=== PATIENT | female | born 1995 | race Two or more races ===

== ENCOUNTER 2017-03-30 14:37 | Emergency (ER) | payer MEDICAID ==
[~2017-03-30] VITALS: Ht 167.6 cm; Wt 90.7 kg
[2017-03-30] MEDS ORDERED: SODIUM CHLORIDE 0.9% 1,000 ML IVB ONE (15:41)
[2017-03-30] MEDS ORDERED: PROMETHAZINE HCL 25 MG/ML 1ML IV PRN (15:45)
[2017-03-30] MEDS ORDERED: KETOROLAC TROMETH 30 MG/ML 1ML VIAL IV ONE (15:45)
[2017-03-30 15:55] LABS: Basophils # (auto) 0 uL; Basophils % (auto) 0.4 % (0.0-2.0); CONDITION Y; DEFINITIVE SEE PRINTOUT; Eosinophils # (auto) 0.1 uL; Eosinophils % (auto) 0.6 % (0.0-7.0); Hematocrit 38.4 % (36.0-46.0); Hemoglobin 12.5 g/dL (12.2-16.2); Lymphocytes # (auto) 1.9 uL; Mean Corpuscular Hemoglobin 24.3 pg (28.0-32.0); Mean Corpuscular Hgb Conc. 32.6 g/dL (32.0-36.0); Mean Corpuscular Volume 74.6 fL (80.0-100.0); Mean Platelet Volume 9.1 fL (7.4-10.4); Monocytes # (auto) 0.6 uL; Neutrophils # (auto) 10.2 uL; Platelet Count (auto) 443 10^3/uL (140-450); White Blood Cell 12.9 10^3/uL (4.4-10.8)
[2017-03-30 16:13] LABS: Albumin 3.7 g/dL (3.4-5.0); BUN/Creatinine Ratio 11.1; Calcium 8.8 mg/dL (8.5-10.1); Magnesium 2.1 mg/dL (1.6-2.6); Potassium 3.4 mmol/L (3.5-5.1)
[2017-03-30 16:15] LABS: Bilirubin, Total 0.3 mg/dL (0.2-1.0); Total Protein 7.6 g/dL (6.4-8.2)
[2017-03-30 16:19] LABS: Urine Bilirubin Negative (Negative); Urine Glucose Normal (Normal); Urine Ketone Negative (Negative); Urine Nitrite Negative (Negative); Urine RBC 436 /hpf (0 - 4); Urine Urobilinogen Normal (Negative); Urine pH 8.5 (5.0-8.0)
[2017-03-30 16:20] LABS: Urine Blood 3+ /uL (Negative); Urine Color Pink (Yellow)
[2017-03-30 18:20] VITALS: BP 102/61
== END 2017-03-30 19:09 | disposition home or self-care (01) ==
LOC: ER 14:42
DX: N39.0 Urinary tract infection, site not specified (principal); N94.6 Dysmenorrhea, unspecified; E28.2 Polycystic ovarian syndrome; E87.6 Hypokalemia; E11.9 Type 2 diabetes mellitus without complications
CPT/HCPCS: 36415; 76856; 80053; 81001; 83690; 83735; 84702; 85025; 96361; 96374; 96375; 99285; J1885; J2550; J7030

== ENCOUNTER → 2017-03-31 | Emergency (ER) | payer MEDICAID | END | disposition left against medical advice (07) | LOC: ER 01:12 | DX: R00.2 Palpitations (principal); Z53.21 Procedure and treatment not carried out due to patient leaving prior to being seen by health care provider ==

== ENCOUNTER 2022-01-29 12:03 | Emergency (ER) | payer MEDICAID ==
[~2022-01-29] VITALS: Ht 167.6 cm; Wt 88.5 kg
[2022-01-29 12:03] VITALS: BP 140/105
[2022-01-29] MEDS ORDERED: ONDANSETRON HCL 4 MG/2 ML VIAL IV ONE (12:30)
[2022-01-29] MEDS ORDERED: ALUM & MAG HYDROX-SIMETH LIQ(MAALOX) 30 ML PO ONE (12:30)
[2022-01-29] MEDS ORDERED: FAMOTIDINE (10MG/ML) 2ML VL IV ONE (12:30)
[2022-01-29] MEDS ORDERED: LIDOCAINE VISCOUS 2% 15ML UD PO ONE (12:30)
[2022-01-29 12:34] LABS: Basophils # (auto) 0.1 10 ^3/uL (0-0.2); Basophils % (auto) 0.9 % (0.0-2.0); Eosinophils # (auto) 0.1 10 ^3/uL (0-0.8); Eosinophils % (auto) 0.9 % (0.0-7.0); Hematocrit 36.7 % (36.0-46.0); Hemoglobin 11.4 g/dL (12.2-16.2); Lymphocytes # (auto) 2.3 10 ^3/uL (0.4-5.4); Mean Corpuscular Hemoglobin 20.6 pg (28.0-32.0); Mean Corpuscular Hgb Conc. 30.9 g/dL (32.0-36.0); Mean Corpuscular Volume 66.8 fL (80.0-100.0); Monocytes # (auto) 0.5 10 ^3/uL (0-1.3); Monocytes % (auto) 6.2 % (0.0-12.0); Neutrophils # (auto) 5.5 10 ^3/uL (1.6-8.6); Nucleated Red Blood Cells % 0.1 %; White Blood Cell 8.5 10^3/uL (4.4-10.8)
[2022-01-29 12:36] LABS: Red Cell Distribution Width 21.7 % (11.8-14.3)
[2022-01-29 12:49] LABS: Albumin 3.4 g/dL (3.4-5.0); BUN/Creatinine Ratio 10.4; Calcium 9.2 mg/dL (8.5-10.1); Potassium 3.8 mmol/L (3.5-5.1)
[2022-01-29 12:51] LABS: Magnesium 2.3 mg/dL (1.6-2.6)
[2022-01-29 12:52] LABS: Bilirubin, Total 0.2 mg/dL (0.2-1.0); Total Protein 7.4 g/dL (6.4-8.2)
== END 2022-01-29 20:54 | disposition left against medical advice (07) ==
LOC: ER 12:03
DX: R11.2 Nausea with vomiting, unspecified (principal); R19.7 Diarrhea, unspecified; Z53.21 Procedure and treatment not carried out due to patient leaving prior to being seen by health care provider
CPT/HCPCS: 36415; 76705; 80053; 83690; 83735; 85025

== ENCOUNTER 2024-04-14 09:28 | Inpatient (IN) | payer MEDICAID ==
[~2024-04-14] VITALS: Ht 167.6 cm; Wt 97.6 kg
[2024-04-14 11:14] LABS: Basophils # (auto) 0 10 ^3/uL (0-0.2); Basophils % (auto) 0.3 % (0.0-2.0); Eosinophils # (auto) 0 10 ^3/uL (0-0.8); Hematocrit 46.2 % (36.0-46.0); Hemoglobin 15.1 g/dL (12.2-16.2); Lymphocytes # (auto) 1.3 10 ^3/uL (0.4-5.4); Lymphocytes % (auto) 8.9 % (10.0-50.0); Mean Corpuscular Hgb Conc. 32.6 g/dL (32.0-36.0); Mean Corpuscular Volume 82.9 fL (80.0-100.0); Monocytes # (auto) 0.4 10 ^3/uL (0-1.3); Neutrophils % (auto) 87.8 % (37.0-80.0); Red Blood Cells 5.57 10^6/uL (4.0-5.20); Red Cell Distribution Width 15.3 % (11.8-14.3); White Blood Cell 14.8 10^3/uL (4.4-10.8)
[2024-04-14 11:33] LABS: Lactic Acid w/Reflex 2.9 mmol/L (0.4-2.0)
[2024-04-14 11:38] LABS: Alanine Aminotransferase 29 U/L (7-40); Albumin 5.2 g/dL (3.2-4.8); Alkaline Phosphatase 51 U/L (46-116); Anion Gap 10 (5-15); Aspartate Aminotransferase 19 U/L (13-40); BUN/Creatinine Ratio 9.6 (10.0-20.0); Bilirubin, Total 0.4 mg/dL (0.2-1.0); Blood Urea Nitrogen 7 mg/dL (9-23); Calcium 11.3 mg/dL (8.7-10.4); Carbon Dioxide 26 mmol/L (20-30); Chloride 104 mmol/L (98-107); Glucose 147 mg/dL (74-106); Lipase 27 U/L (12-53); Sodium 140 mmol/L (136-145); Total Protein 8.4 g/dL (5.7-8.2)
[2024-04-14 11:53] LABS: Urine Bacteria FEW /hpf (None Seen); Urine Blood Negative /uL (Negative); Urine Clarity Turbid (Clear); Urine Color Yellow (Yellow); Urine Hyaline Cast FEW /lpf (0 - 2); Urine Mucus FEW (None Seen); Urine Protein, UAD 1+ (Negative); Urine Specific Gravity 1.027 (1.001-1.035); Urine Urobilinogen Normal (Negative); Urine WBC 7 /hpf (0 - 5); Urine pH 7.5 (5.0-9.0)
[2024-04-14 13:03] VITALS: PULSE 102; RESP 18; O2SAT 94
[2024-04-14] MEDS: SODIUM CHLORIDE 0.9% 1,000 ML IV ONE (14:01)
[2024-04-14] MEDS: ONDANSETRON HCL 4 MG/2 ML VIAL IV ONE (14:08)
[2024-04-14] MEDS: PIPERACILLIN-TAZOB 3.375GM 100 ML IV ONE ×2 (14:09→14:24)
[2024-04-14] MEDS ORDERED: MORPHINE SULFATE INJ 2 MG/ml SYRG IV PRN ×2 (14:15)
[2024-04-14] MEDS ORDERED: DOCUSATE SOD 100 MG CAP PO PRN (14:15)
[2024-04-14] MEDS ORDERED: DEXTROSE (50%) 50ML SYRG IV PRN (14:15)
[2024-04-14] MEDS ORDERED: SODIUM CHLORIDE 0.9% 1,000 ML IV SCH (14:15)
[2024-04-14] MEDS ORDERED: ONDANSETRON HCL 4 MG/2 ML VIAL IV PRN (14:15)
[2024-04-14] MEDS ORDERED: NITROGLYCERIN 0.4 MG SL TAB SL PRN (14:15)
[2024-04-14] MEDS: SODIUM CHLORIDE 0.9% 1,000 ML IV SCH ×2 (14:30→19:30)
[2024-04-14] MEDS: PANTOPRAZOLE 40 MG/10 ML VIAL INJ IV ONE (14:40)
[2024-04-14] MEDS: PIPERACILLIN-TAZOB 3.375GM 100 ML IV SCH (18:00)
[2024-04-14] MEDS: InsuLIN REG 1unit/0.01ml Soln (100units/ml) SC SCH (18:00)
[2024-04-14] MEDS: ACCU-CHEK COMFORT CURVE STRIP VI SCH (18:20)
[2024-04-14 18:53] VITALS: BP 108/76; PULSE 99; RESP 18; TEMP 97.7; O2SAT 95
[2024-04-14 18:55] VITALS: RESP 18; O2SAT 95
[2024-04-14] MEDS ORDERED: SPIR100T4 PO (19:14)
[2024-04-14] MEDS ORDERED: METF-371 PO (19:14)
[2024-04-14 20:00] VITALS: PULSE 106; RESP 20; O2SAT 92
[2024-04-14 21:00] VITALS: BP 105/58; PULSE 106; RESP 20; TEMP 98.1; O2SAT 92
[2024-04-15] VITALS (9 sets, daily range): BP systolic 87–102; BP diastolic 47–64; PULSE 75–106; RESP 14–20; TEMP 97.6–98.4; O2SAT 93–100
[2024-04-15 06:14] LABS: Basophils # (auto) 0 10 ^3/uL (0-0.2); Monocytes # (auto) 0.9 10 ^3/uL (0-1.3); Neutrophils # (auto) 7.4 10 ^3/uL (1.6-8.6); White Blood Cell 10.8 10^3/uL (4.4-10.8)
[2024-04-15 06:17] LABS: Basophils % (auto) 0.2 % (0.0-2.0); Eosinophils # (auto) 0.1 10 ^3/uL (0-0.8); Eosinophils % (auto) 1.3 % (0.0-7.0); Hematocrit 36.8 % (36.0-46.0); Lymphocytes # (auto) 2.4 10 ^3/uL (0.4-5.4); Mean Corpuscular Hgb Conc. 32.6 g/dL (32.0-36.0); Mean Corpuscular Volume 82.8 fL (80.0-100.0); Monocytes % (auto) 8.2 % (0.0-12.0); Neutrophils % (auto) 68.3 % (37.0-80.0); Red Blood Cells 4.45 10^6/uL (4.0-5.20); Red Cell Distribution Width 15.9 % (11.8-14.3)
[2024-04-15 06:32] LABS: Alanine Aminotransferase 20 U/L (7-40); Alkaline Phosphatase 36 U/L (46-116); Anion Gap 9 (5-15); Aspartate Aminotransferase 14 U/L (13-40); BUN/Creatinine Ratio 11.5 (10.0-20.0); Bilirubin, Total 0.5 mg/dL (0.2-1.0); Blood Urea Nitrogen 7 mg/dL (9-23); Calcium 9.2 mg/dL (8.7-10.4); Carbon Dioxide 24 mmol/L (20-30); Chloride 110 mmol/L (98-107); Glucose 91 mg/dL (74-106); Potassium 3.8 mmol/L (3.5-5.1); Sodium 143 mmol/L (136-145); Total Protein 6.3 g/dL (5.7-8.2)
[2024-04-15] MEDS: PANTOPRAZOLE 40 MG/10 ML VIAL INJ IV SCH (09:26)
[2024-04-16] VITALS (9 sets, daily range): BP systolic 80–106; BP diastolic 35–70; PULSE 69–93; RESP 15–19; TEMP 97.6–98.5; O2SAT 95–98
[2024-04-16 06:57] LABS: Anion Gap 6 (5-15); Basophils # (auto) 0 10 ^3/uL (0-0.2); Basophils % (auto) 0.5 % (0.0-2.0); Carbon Dioxide 28 mmol/L (20-30); Chloride 111 mmol/L (98-107); Eosinophils # (auto) 0.3 10 ^3/uL (0-0.8); Eosinophils % (auto) 3.8 % (0.0-7.0); Hematocrit 36.1 % (36.0-46.0); Hemoglobin 11.7 g/dL (12.2-16.2); Lymphocytes # (auto) 2.5 10 ^3/uL (0.4-5.4); Lymphocytes % (auto) 33.2 % (10.0-50.0); Mean Corpuscular Hemoglobin 27.2 pg (28.0-32.0); Mean Corpuscular Hgb Conc. 32.6 g/dL (32.0-36.0); Mean Corpuscular Volume 83.5 fL (80.0-100.0); Monocytes # (auto) 0.5 10 ^3/uL (0-1.3); Neutrophils # (auto) 4.1 10 ^3/uL (1.6-8.6); Neutrophils % (auto) 55.5 % (37.0-80.0); Potassium 3.4 mmol/L (3.5-5.1); Red Blood Cells 4.32 10^6/uL (4.0-5.20); Red Cell Distribution Width 15.6 % (11.8-14.3); Sodium 145 mmol/L (136-145); White Blood Cell 7.4 10^3/uL (4.4-10.8)
[2024-04-16 06:58] LABS: Calcium 9.3 mg/dL (8.5-10.1)
[2024-04-16 07:03] LABS: Glucose 82 mg/dL (74-106)
[2024-04-16 07:04] LABS: BUN/Creatinine Ratio 8.5 (10.0-20.0); Blood Urea Nitrogen < 5 mg/dL (9-23)
[2024-04-17] MEDS: ACETAMINOPHEN 325 MG TAB PO PRN (00:18)
[2024-04-17 00:53] VITALS: BP 117/74; PULSE 83; RESP 18; TEMP 97.7; O2SAT 96
[2024-04-17 05:00] VITALS: BP 102/66; PULSE 82; RESP 20; TEMP 98; O2SAT 96
[2024-04-17 05:22] LABS: Eosinophils # (auto) 0.2 10 ^3/uL (0-0.8); Eosinophils % (auto) 2.9 % (0.0-7.0); Mean Corpuscular Hemoglobin 26.9 pg (28.0-32.0); Monocytes # (auto) 0.6 10 ^3/uL (0-1.3); Monocytes % (auto) 7.2 % (0.0-12.0); White Blood Cell 8.5 10^3/uL (4.4-10.8)
[2024-04-17 05:25] LABS: Basophils # (auto) 0.1 10 ^3/uL (0-0.2); Basophils % (auto) 0.6 % (0.0-2.0); Hematocrit 36.1 % (36.0-46.0); Hemoglobin 11.7 g/dL (12.2-16.2); Lymphocytes # (auto) 2.6 10 ^3/uL (0.4-5.4); Lymphocytes % (auto) 30.7 % (10.0-50.0); Mean Corpuscular Hgb Conc. 32.4 g/dL (32.0-36.0); Mean Corpuscular Volume 83.1 fL (80.0-100.0); Neutrophils % (auto) 58.6 % (37.0-80.0); Nucleated Red Blood Cells % 0.1 %; Red Blood Cells 4.35 10^6/uL (4.0-5.20)
[2024-04-17 05:31] LABS: Chloride 110 mmol/L (98-107); Potassium 3.3 mmol/L (3.5-5.1); Sodium 144 mmol/L (136-145)
[2024-04-17 05:32] LABS: Anion Gap 6 (5-15); Carbon Dioxide 28 mmol/L (20-30)
[2024-04-17 05:33] LABS: Calcium 9.4 mg/dL (8.5-10.1)
[2024-04-17 05:37] LABS: Glucose 87 mg/dL (74-106)
[2024-04-17 05:38] LABS: BUN/Creatinine Ratio 7.4 (10.0-20.0); Blood Urea Nitrogen < 5 mg/dL (9-23)
[2024-04-17] MEDS: POTASSIUM EFFERVESENT TAB 25 MEQ PO ONE (07:10)
[2024-04-17 09:00] VITALS: BP 98/67; PULSE 76; RESP 20; TEMP 97.5; O2SAT 94
[2024-04-17 13:00] VITALS: BP 93/66; PULSE 85; RESP 16; TEMP 97.9; O2SAT 95
== END 2024-04-17 14:20 | disposition home or self-care (01) | DRG 247 ==
LOC: ER 09:28 → OVERFLOW 14:13 → CENTRAL 18:45
PROVIDERS: ADMIT Internal Medicine; ATTEND Internal Medicine
PROC: 0D9670Z Drainage of Stomach with Drainage Device, Via Natural or Artificial Opening (ICD-10-PCS; principal; 2024-04-14)
DX: K56.600 Partial intestinal obstruction, unspecified as to cause (principal); E88.819 Insulin resistance, unspecified; R65.10 Systemic inflammatory response syndrome (SIRS) of non-infectious origin without acute organ dysfunction; E86.0 Dehydration; E28.2 Polycystic ovarian syndrome; D75.839 Thrombocytosis, unspecified; K59.00 Constipation, unspecified; E66.01 Morbid (severe) obesity due to excess calories; D64.9 Anemia, unspecified; Z68.34 Body mass index [BMI] 34.0-34.9, adult; Z79.899 Other long term (current) drug therapy
CPT/HCPCS: 36415; 71045; 74176; 80048; 80053; 81001; 82962; 83605; 83690; 84484; 84702; 85025; 96365; 96375; G0378; J2405; J2470; J2543

== ENCOUNTER 2025-08-30 11:53 | Emergency (ER) | payer MEDICAID ==
[~2025-08-30] VITALS: Ht 182.9 cm; Wt 109.1 kg
[~2025-08-30 11:53] MED LIST: METF-371 PO; SPIR100T4 PO
[2025-08-30] MEDS ORDERED: fentaNYL CITRATE 100 MCG/2 ML VL IV ONE (12:15)
--- NOTE | 2025-08-30 12:29 | ED.PDOC ---
GI ASSESSMENT HPI Comments 29 year old female with PMHx COPD, POCS, anemia, DM presents to the ED with a chief complaint of abdominal pain onset today at 6:00. Patient states she began experiencing epigastric pain, nausea and diarrhea since this morning at 06:00. Patient was admitted to [facility] on 04/14/24 due to small bowel obstruction. Patient finished menstrual cycle 1 day ago. Denies vomiting, hematemesis, fever, chills, melena, blood in stool, dizziness, chest pain, shortness of breath, dysuria. No other symptoms or modifying factors present at this time. Chief Complaint: Abdominal Pain Time Seen by MD: 12:20 Primary Care Provider: UNKNOWN Reviewed Notes: Medications, Allergies Allergies: Coded Allergies: NO KNOWN ALLERGIES (Unverified , 03/30/17) Home Meds Reported Medications Spironolactone (Spironolactone) 100 Mg Tab, 1 TAB PO DAILY 04/14/24 Metformin Hydrochloride (Metformin Hcl) 850 Mg Tab, 1 PO DAILY 04/14/24 Information Source: Patient, Relative (Mother) Mode of Arrival: Ambulatory Timing: Hours Duration: Since onset Prehospital treatment: None Quality: Sharp Vomitus: None Stool: Loose Severity: Moderate Recent: None Recent Hx of: None Pain Location: Epigastric Modifying Factors: Nothing Associated sign and symptoms: Nausea, Diarrhea, Abdominal Pain Past Medical History PAST MEDICAL HISTORY: Anemia, COPD, DM Surgical History: Cholecystectomy, Denies all surgeries [employer] History: Ovarian Cysts Family History Family History: Unknown Social History Smoker: Non-Smoker Alcohol: Denies ETOH Use Drugs: Denies Drug Use Lives In: Home Constitutional: denies: chills, diaphoresis, fatigue, fever, malaise, sweats, weakness, others EENTM: denies: blurred vision, double vision, ear bleeding, ear discharge, ear drainage, ear pain, ear ringing, eye pain, eye redness, hearing loss, mouth pain, mouth swelling, nasal discharge, nose bleeding, nose congestion, nose pain, photophobia, tearing, throat pain, throat swelling, voice changes, others Respiratory: denies: cough, hemoptysis, orthopnea, SOB at rest, shortness of breath, SOB with excertion, stridor, wheezing, others Cardiovascular: denies: chest pain, dizzy spells, diaphoresis, Dyspnea on exertion, edema, irregular heart beat, left arm pain, lightheadedness, palpitations, PND, syncope, others Gastrointestinal: reports: abdominal pain, diarrhea, nausea; denies: abdomen distended, blood streaked bowels, constipated, dysphagia, difficulty swallowing, hematemesis, melena, poor appetite, poor fluid intake, rectal bleeding, rectal pain, vomiting, others Genitourinary: denies: abnormal vagina bleeding, burning, dyspareunia, dysuria, flank pain, frequency, hematuria, incontinence, pain, , vagina discharge, urgency, others Neurological: denies: dizziness, fainting, headache, left sided numbness, left sided weakness, numbness, paresthesia, pre-existing deficit, right sided numbness, right sided weakness, seizure, speech problems, tingling, tremors, weakness, others Musculoskeletal: denies: back pain, gout, joint pain, joint swelling, muscle p ain, muscle stiffness, neck pain, others Integumetry: denies: bruises, change in color, change in hair/nails, dryness, laceration, lesions, lumps, rash, wounds, others Allergic/Immunocompromised: denies: Difficulty Healing, Frequent Infections, Hives, Itching, others Hematologic/Lymphatic: denies: anemia, blood clots, easy bleeding, easy bruising, swollen glands, others Endocrine: denies: excessive hunger, excessive sweating, excessive thirst, excessive urination, flushing, intolerance to cold, intolerance to heat, unexplained weight gain, unexplained weight loss, others Psychiatric: denies: anxiety, bipolar disorder, depression, hopeless, panic disorder, schizophrenia, sleepless, suicidal, others All Other Systems: Reviewed and Negative Physical Exam General Appearance: No Apparent Distress, Normal HEENT: Normal ENT Inspection, Pharynx Normal, TMs Normal Neck: Full Range of Motion, Non-Tender, Normal, Normal Inspection Respiratory: Chest Non-Tender, Lungs Clear, No Accessory Muscle Use, No Respiratory Distress, Normal Breath Sounds Cardiovascular: No Edema, No JVD, No Murmur, No Gallop, Normal Peripheral Pulses, Regular Rate/Rhythm Breast Exam: Deferred Gastrointestinal: No Organomegaly, Non Tender, No Pulsatile Mass, Normal Bowel Sounds, Soft Genitalia: Deferred Pelvic: Deferred Rectal: Deferred Extremities: No calf tenderness, Normal capillary refill, Normal inspection, Normal range of motion, Non-tender, No pedal edema Musculoskeletal : Apperance: Normal Neurologic: Alert, access rep II-XII nml as Tested, No Motor Deficits, Normal Affect, Normal Mood, No Sensory Deficits Cerebellar Function: Normal Reflexes: Normal Skin: Dry, Normal Color, Warm Lymphatic: No Adenopathy Was a procedure done? Was a procedure done?: No GI differential Dx Differential Diagnosis: Appendicitis, Bowel Obstruction, Cholangitis, Cholecys titis, Constipation, Diverticular disease, Ectopic , Gastritis/PUD, Gastroenteritis, Hernia, Hepatitis, Inflammatory BD, Ischemic Bowel, Ovarian cyst/torsion, Pancreatitis, Porphyria, Urinary Obstruction, UTI, Urolithiasis, Dehydration, Diabetes/ DKA, Electrolyte Imbalance, Food Poisoning, , Bacterial, Parasitic, Viral, Hypovolemia, Impaction, Stress Ulcer, Kidney Stone X-Ray, Labs, Meds, VS Vital Signs Date Time Temp Pulse Resp B/P (MAP) Pulse Ox O2 Delivery O2 Flow Rate FiO2 08/30/25 14:59 98.3 92 15 103/55 (71) 93 98.3 08/30/25 14:20 84 16 91/47 08/30/25 14:05 98.2 91 15 91/46 (61) 93 98.2 08/30/25 13:56 98.5 92 15 80/44 (56) 94 98.5 08/30/25 13:09 106 16 103/62 08/30/25 12:45 98.2 107 16 92/67 (75) 94 98.2 08/30/25 12:45 106 18 96 Room Air* 0 21 08/30/25 11:55 97.6 117 18 118/88 100 97.6 Lab Test 08/30/25 12:44 08/30/25 12:28 Range/Units Urine Color Pending Urine Clarity Pending Urine pH Pending Urine Specific Oral Pending Urine Protein Pending Urine Ketones Pending Urine Blood Pending Urine Nitrite Pending Urine Bilirubin Pending Urine Urobilinogen Pending Urine Leukocyte Esterase Pending Urine RBC 0 - 4 /hpf Urine Microscopic WBC Pending Urine Squamous Epithelial Cells <5 /hpf Urine Bacteria None Seen /hpf Urine Glucose Pending White Blood Count 11.8 H 4.4-10.8 10^3/uL Red Blood Count 5.73 H 4.0-5.20 10^6/uL Hemoglobin 14.7 12.2-16.2 g/dL Hematocrit 46.1 H 36.0-46.0 % Mean Corpuscular Volume 80.6 80.0-100.0 fL Mean Corpuscular Hemoglobin 25.6 L 28.0-32.0 pg Mean Corpuscular Hemoglobin Concent 31.8 L 32.0-36.0 g/dL Red Cell Distribution Width 17.0 H 11.8-14.3 % Platelet Count 488 H 140-450 10^3/uL Mean Platelet Volume 8.8 6.9-10.8 fL Neutrophils (%) (Auto) 72.4 37.0-80.0 % Lymphocytes (%) (Auto) 22.4 10.0-50.0 % Monocytes (%) (Auto) 4.7 0.0-12.0 % Eosinophils (%) (Auto) 0.3 0.0-7.0 % Basophils (%) (Auto) 0.2 0.0-2.0 % Neutrophils # (Auto) 8.5 1.6-8.6 10 ^3/uL Lymphocytes # (Auto) 2.6 0.4-5.4 10 ^3/uL Monocytes # (Auto) 0.6 0-1.3 10 ^3/uL Eosinophils # (Auto) 0 0-0.8 10 ^3/uL Basophils # (Auto) 0 0-0.2 10 ^3/uL Nucleated Red Blood Cells 0.0 % Sodium Level 144 136-145 mmol/L Potassium Level 3.9 3.5-5.1 mmol/L Chloride Level 106 98-107 mmol/L Carbon Dioxide Level 24 20-31 mmol/L Anion Gap 14 5-15 Blood Urea Nitrogen 7 L 9-23 mg/dL Creatinine 0.60 0.550-1.02 mg/dL Glomerular Filtration Rate Calc 125 >90 mL/min BUN/Creatinine Ratio 11.7 10.0-20.0 Serum Glucose 124 H 74-106 mg/dL Calcium Level 9.4 8.7-10.4 mg/dL Beta HCG, Quantitative 1.0 L 1.5-4.2 mIU/mL Current Medications Medications (Trade) Dose Ordered Sig/Ifeanyi Route Start Time Stop Time Status Last Admin Sodium Chloride 1,000 ml @ 150 mls/hr Q6H40M ONCE IV 08/30/25 12:15 08/30/25 18:54 08/30/25 12:50 Ondansetron HCl (Zofran) 4 mg ONCE ONCE IV 08/30/25 12:15 08/30/25 12:17 DC 08/30/25 13:08 Morphine Sulfate 2 mg ONCE ONCE IV 08/30/25 13:00 08/30/25 13:01 DC 08/30/25 13:09 Time of 1ST Reevaluation: 12:50 Reevaluation 1ST: Unchanged Time of 2ND Reevaluation: 17:59 Reevaluation 2ND: Resolved Patient Education/Counseling: Diagnosis, Treatment, Prognosis, Need For Follow Up Family Education/Counseling: Diagnosis, Treatment, Prognosis, Need For Follow Up Comments Patient has a history of small-bowel obstruction. She presents with the abdominal pain nausea or vomiting and diarrhea. However her symptoms are now completely resolved. Her workup shows he has nonspecific mesenteric stranding and adenitis in addition, she has a nonspecific left adrenal lesion in the right lung lesion. How for the of med the patient for further workup and symptom control. However she states that she follows with the gastroc groups. She had recently had an endoscopy. She will take the CT scan to her gastro doctor for follow up. She is asymptomatic and would like to go home. Additional Information Reviewed charts from previous visit: 04/14/25 with small bowel obstruction The following tests were ordered, and results were reviewed by me: CT AB PEL WO CON, BMP, UA, BETA HCG, CBC Additional Information was gathered from interviewing the following independent historians: mother I reviewed and agreed with the following test results read by other providers: CT AB PEL WO CON, I discussed treatment and results with medical personnel and: patient and mother Comprehensive systems review obtained and negative except for what is stated in the HPI. SEPSIS Sepsis Screen Date sepsis recognized/suspect: Aug 30, 2025 Time Sepsis recognized/suspect: 1156 Recent Procedure: No On Antibiotic Therapy: No Respiratory Rate >20: No Heart Rate >90: Yes Temp<36 C (96.8 F) or >38.3 C: No SBP <90 or MAP <65 mmHG: No New Acute Mental Status Change: No Is the patient on CPAP, BIPAP,: No Physician Orders Urinalysis (08/30/25 12:14) Ct Ab Pel Wo Con-No Oral Or Iv (08/30/25 12:14) Sodium Chloride 0.9% (08/30/25 12:15) Vital Signs Date Time Temp Pulse Resp B/P (MAP) Pulse Ox O2 Delivery O2 Flow Rate FiO2 08/30/25 14:59 98.3 92 15 103/55 (71) 93 98.3 08/30/25 14:20 84 16 91/47 08/30/25 14:05 98.2 91 15 91/46 (61) 93 98.2 08/30/25 13:56 98.5 92 15 80/44 (56) 94 98.5 08/30/25 13:09 106 16 103/62 08/30/25 12:45 98.2 107 16 92/67 (75) 94 98.2 08/30/25 12:45 106 18 96 Room Air* 0 21 08/30/25 11:55 97.6 117 18 118/88 100 97.6 Laboratory Tests Test 08/30/25 12:28 White Blood Count 11.8 10^3/uL (4.4-10.8) H Medications Medications Dose Ordered Sig/Ifeanyi Route Start Time Stop Time Status Last Admin Dose Admin Morphine Sulfate 2 mg ONCE ONCE IV 08/30/25 13:00 08/30/25 13:01 DC 08/30/25 13:09 Ondansetron HCl 4 mg ONCE ONCE IV 08/30/25 12:15 08/30/25 12:17 DC 08/30/25 13:08 Sodium Chloride 1,000 ml @ 150 mls/hr Q6H40M ONCE IV 08/30/25 12:15 08/30/25 18:54 08/30/25 12:50 Departure 1 Departure Time of Disposition: 18:00 Impression: Primary Impression: Lower abdominal pain Additional Impressions: Nausea Abdominal pain Mesenteric lymphadenopathy Enteritis Lesion of lung Adrenal abnormality Disposition: HOME / SELF CARE / HOMELESS Condition: Stable Additional Instructions: Follow up follow up with your grocery team member and present the CAT scan report. Feel free to return to the emergency room for any additional concerns or if you change your mind about being admitted. e-Prescriptions Ondansetron Odt 4MG Tab (ZOFRAN PO) 4 Mg Tb 4 MG PO Q4HPRN PRN for 5 Days, #25 TAB ODT TAB-DISSOLVE IN MOUTH, THEN SWALLOW Prov: FERMÍN LIEBERMAN MD 08/30/25 Discharged With: Self, Relative (Mother) Critical Care Note Critical Care Time?: No Stability Stability form required: No Heart Score Heart Score: Heart Score Response (Comments) Value History N/A 0 EKG N/A 0 Age N/A 0 Risk Factors N/A 0 Troponin N/A 0 Total 0 I personally scribed for FERMÍN LIEBERMAN MD ([email or web address]) on 08/30/25 at 12:29. Electronically submitted by Italia Portillo ([email or web address]). I personally scribed for FERMÍN LIEBERMAN MD ([email or web address]) on 08/30/25 at 12:31. Electronically submitted by Italia Portillo ([email or web address]). FERMÍN LIEBERMAN MD Aug 30, 2025 12:29
[2025-08-30 12:45] VITALS: PULSE 106; RESP 18; O2SAT 96
[2025-08-30] MEDS: SODIUM CHLORIDE 0.9% 1,000 ML IV ONE (12:50)
[2025-08-30 12:56] LABS: Chloride 106 mmol/L (98-107); Potassium 3.9 mmol/L (3.5-5.1); Sodium 144 mmol/L (136-145)
[2025-08-30 12:57] LABS: Anion Gap 14 (5-15); Calcium 9.4 mg/dL (8.7-10.4); Carbon Dioxide 24 mmol/L (20-31); Hemoglobin 14.7 g/dL (12.2-16.2)
[2025-08-30 13:00] LABS: Hematocrit 46.1 % (36.0-46.0); Mean Corpuscular Hemoglobin 25.6 pg (28.0-32.0); Mean Corpuscular Volume 80.6 fL (80.0-100.0); Nucleated Red Blood Cells % 0.0 %
[2025-08-30 13:02] LABS: BUN/Creatinine Ratio 11.7 (10.0-20.0)
[2025-08-30 13:06] LABS: Blood Urea Nitrogen 7 mg/dL (9-23); Glucose 124 mg/dL (74-106)
[2025-08-30] MEDS: ONDANSETRON HCL 4 MG/2 ML VIAL IV ONE (13:08)
[2025-08-30] MEDS: MORPHINE SULFATE INJ 2 MG/ml SYRG IV ONE (13:09)
[2025-08-30 14:59] VITALS: BP 103/55; PULSE 92; RESP 15; TEMP 98.3; O2SAT 93
--- NOTE | 2025-08-30 16:05 | DVH ---
Indication: r/o sbo Technique: CT axial images of the abdomen and pelvis are obtained without contrast. Coronal and sagittal reformats were obtained. Radiation Dose Information: CTDI volume is 24.4 mGy. Dose-length product is 1403 mGy*cm Comparison: CT CT AB PEL WO CON-NO ORAL OR IV on DOS: 04/14/24 FINDINGS: There is limited interpretation of the abdomen and pelvis without administration of intravenous contrast. Lung bases demonstrate atelectatic changes. 5 mm right lower lobe soft tissue nodule. 5 mm right lower lobe subpleural nodule 1.7 cm left adrenal nodule. Right adrenal gland unremarkable. Spleen, pancreas unremarkable in shape. Hepatic steatosis. Cholecystectomy. The kidneys demonstrate no hydronephrosis. Nonobstructing left renal calculus measuring 2 mm. Stomach is partially distended. Small bowel loops demonstrate mild stranding surrounding the duodenum. There is also Mild Stranding surrounding the small bowel loops. There is mesenteric edema and numerous subcentimeter mesenteric lymph nodes. Large bowel relatively nondistended. Normal appendix. Bladder is partially distended. Small amount of free pelvic fluid. No inguinal lymphadenopathy. There is mild bilateral sacroiliac degenerative joint disease. Mild thoracolumbar degenerative disc disease. IMPRESSION: Limited evaluation without contrast. Mild stranding and edema surrounding the small bowel loops as well as associated mesenteric edema and subcentimeter lymph nodes which can be secondary to enteritis, inflammatory bowel disease, mesenteric adenitis. Indeterminate left adrenal nodule measuring 1.7 cm which can be further evaluated with MRI adrenal mass protocol in the nonemergent setting. Hepatic steatosis. Cholecystectomy. Nonobstructing left renal calculus measuring 2 mm. Small amount of free pelvic fluid. 5 mm right lower lobe soft tissue nodule and 5 mm right lower lobe pulmonary subpleural nodule.. Recommend follow-up per Fleischner society criteria. Other findings as described.
[2025-08-30] MEDS ORDERED: ZOFR4T PO (18:03)
== END 2025-08-30 18:10 | disposition home or self-care (01) ==
LOC: ER 11:53
DX: R10.13 Epigastric pain (principal); R11.0 Nausea; R59.0 Localized enlarged lymph nodes; K52.9 Noninfective gastroenteritis and colitis, unspecified; R91.1 Solitary pulmonary nodule; E11.9 Type 2 diabetes mellitus without complications; J44.9 Chronic obstructive pulmonary disease, unspecified; Z79.84 Long term (current) use of oral hypoglycemic drugs; Z79.899 Other long term (current) drug therapy; Z90.49 Acquired absence of other specified parts of digestive tract
CPT/HCPCS: 36415; 74176; 80048; 84702; 85025; 96361; 96374; 96375; 99285; J2270; J2405; J7030